=== PATIENT | male | born 1950 | race Caucasian/White ===

== ENCOUNTER 2019-02-09 08:32 | Outpatient (CLI) | payer BC ==
[2019-02-09 09:57] LABS: Bacteria/HPF None Seen HPF (None Seen); Hyaline Casts/LPF NONE SEEN LPF (0-3 Hyaline); RBC/HPF 0-3 HPF (0-3); Squamous Epithelial None Seen HPF (0-3); WBC/HPF 0-3 HPF (0-3)
== END 2019-02-09 08:33 | disposition home or self-care (01) ==
LOC: LABBT 08:32
PROVIDERS: ATTEND Orthopaedic Surgery
DX: Z01.818 Encounter for other preprocedural examination (principal); M17.11 Unilateral primary osteoarthritis, right knee
CPT/HCPCS: 81015; 87081; 93005; 93010

== ENCOUNTER 2019-02-09 08:45 | Inpatient (IN) | payer BC, MEDICARE ==
[2019-02-09 08:53] VITALS: BMI 32.4
[2019-02-21] MEDS ORDERED: Sodium Chloride 0.9% 100 ML ONE (10:31)
[2019-02-21] MEDS ORDERED: Tranexamic Acid 1,000 MG/10 ML VIAL ONE (10:31)
[2019-02-21] MEDS ORDERED: Vancomycin HCl 1.5 GM in Sodium Chloride 0.9% 250 ML 300 ML IVPB SCH (10:45)
[2019-02-21] MEDS ORDERED: Midazolam HCl 2 mg/2 ml Vial ONE ×2 (11:00→12:16)
[2019-02-21] MEDS ORDERED: Fentanyl 100 MCG/2 ML VIAL ONE ×4 (12:16→16:13)
[2019-02-21] MEDS ORDERED: Sodium Chloride 0.9% 10 ML ONE (12:17)
[2019-02-21] MEDS ORDERED: HYDROcodone/Acetaminophen 5/325 mg Tablet PO PRN (12:40)
[2019-02-21] MEDS ORDERED: Ondansetron PF 4 MG/2 ML Vial IVP PRN ×2 (12:40→13:14)
[2019-02-21] MEDS ORDERED: Zolpidem Tartrate 5 MG TAB PO PRN ×2 (12:40→13:14)
[2019-02-21] MEDS ORDERED: Ketorolac Tromethamine 30 MG/ML VIAL IVP PRN (12:40)
[2019-02-21] MEDS ORDERED: Promethazine HCl 25 MG/ML VIAL IM PRN ×2 (12:40→13:14)
[2019-02-21] MEDS ORDERED: Ropivacaine HCl/PF 250 ML in Premix Bag 1 BAG NERVE BLCK SCH (12:40)
[2019-02-21] MEDS ORDERED: traMADol HCl 50 MG TAB PO PRN (12:40)
[2019-02-21] MEDS ORDERED: Fentanyl 100 MCG/2 ML VIAL SLOW IVP PRN (12:42)
[2019-02-21] MEDS ORDERED: diphenhydrAMINE 25 MG CAP PO PRN (13:14)
[2019-02-21] MEDS ORDERED: Acetaminophen 325 MG TAB PO PRN (13:14)
[2019-02-21] MEDS ORDERED: Rizatriptan Benzoate 10 MG MLT TAB PO PRN (14:00)
[2019-02-21] MEDS ORDERED: Meperidine HCl/PF 25 MG/ML VIAL ONE (15:49)
--- NOTE | 2019-02-21 16:23 | RAD ---
Right knee 2 views HISTORY: Arthritis. Knee replacement. FINDINGS: Metallic prosthetic components are in place without perihardware lucency. Intracapsular and soft tissue gas are apparent. IMPRESSION: Right knee prosthesis is in good radiographic position.
[2019-02-21] MEDS: Sodium Chloride 0.9% 1,000 ML IV SCH (17:32)
--- NOTE | 2019-02-21 17:52 | OP ---
DATE OF PROCEDURE: 02/21/2019 This is Sean Yao PA-C dictating a report for Franklyn Knox MD. PREOPERATIVE DIAGNOSIS: End-stage severe degenerative tricompartmental osteoarthritis, right knee. POSTOPERATIVE DIAGNOSIS: End-stage severe degenerative tricompartmental osteoarthritis, right knee. OPERATIVE PROCEDURE: Cemented cruciate sparing computer-assisted navigated right total knee arthroplasty. SURGEON: Franklyn Knox MD INSPECTOR TOYS: Sean Yao PA-C ANESTHESIA: General via LMA augmented with indwelling adductor canal block with a single shot sciatic block. COMPONENTS USED: [employer] triathlon cemented cruciate sparing size 6 femoral component with a size 5 cemented primary tibial base plate, 9 mm polyethylene fixed bearing insert, and A38 patella button. TOURNIQUET TIME: 69 minutes at 300 mmHg. FINDINGS: End-stage severe degenerative tricompartmental disease, [id number] arthrosis, large periarticular osteophyte formation, hypertrophic synovium, and hypertrophic capsule. ESTIMATED BLOOD LOSS: Less than 100. DRAINS: None. SPECIMENS: None. COMPLICATIONS: None. COUNTS: Correct. INDICATION FOR SURGERY: Mario Alberto is a 68-year-old white male, who has had progressive right knee pain and problem with standing and walking for the last 5 to 7 years. He has also incidentally had a medial collateral ligament reconstruction and anterior cruciate ligament reconstruction/repair many years ago. He has elected to proceed with total knee arthroplasty as definitive treatment of his chronic pain. PROCEDURE IN DETAIL: After informed consent was obtained in the preoperative holding area, the patient was taken to the operative suite where general anesthesia was induced. Once adequate level of general anesthesia was obtained, the patient was positioned and a well-padded tourniquet was placed around the right proximal thigh. The right lower extremity was then prepped and draped in the usual sterile fashion. Prior to exsanguination, a time-out was called and all members of the surgical team agreed upon site, surgeon, and patient. The extremity was then exsanguinated and the tourniquet was raised. A midline longitudinal incision was then made directly over the patella extending 2 fingerbreadths above the superior pole of the patella and 2 fingerbreadths inferior to the inferior patellar pole of the patella. Deeper subcutaneous layers were dissected sharply and local bleeding was controlled with Bovie electrocautery. A quad tendon longitudinal split was then made sharply and a median parapatellar arthrotomy was carried out both sharp and with Bovie electrocautery, carried down to 1 fingerbreadth medial to the tibial tubercle. The knee was then placed into flexion and the patella was everted nicely, and a copious fat pad ectomy was performed, allowing for greater exposure of the tibia. The computer-assisted distal femoral fiducial was then placed and pinned firmly, and the distal femoral cutting guide was pinned firmly into place. The oscillating saw was then used to remove the appropriate amount of bone. The 4-in-1 cutting block was then placed on the distal femur and the oscillating saw was used to remove the appropriate amount of bone off the anterior, posterior, and chamfer cuts. After completion of bone cuts, the anterior cruciate ligament was resected sharply and the posterior cruciate ligament retractor was placed and the tibia was subluxed for better exposure. Partial meniscectomies were carried out, and the tibial computer-assisted fiducial was pinned, and the cutting guide was placed. Oscillating saw was then used to remove the bone, with Hohmann retractors used to take care and protect the collateral ligaments. After the tibial resection was performed, a laminar after school tutor was placed in between the freshened bone cuts. The knee placed at 90 degrees and further bilateral meniscectomies were carried out, and the curved osteotome and curettage were used to remove any excess bone spurs in the posterior compartment. The trial femoral component, tibial baseplate were placed with the appropriate polyethylene trial insert with an appropriate polyethylene spacer and patellar button. The knee was taken through full range of motion with flexion and extension from 0 to 90 degrees and patellar broach squarely in the trochlea without any squinting or subluxation noted. The knee was also stable to varus and valgus stressing at 0, 15, 45, and 90 degrees of flexion. The drawer was negative. All trial components were then removed and the keel punch was used to provide the appropriate defect in the tibia with a mallet. The freshened bone cuts were copiously irrigated with pulsatile lavage of about 1.5 L to remove all excess debris. The freshened bone cuts were then dried with suction and lap sponge. The knee was placed in flexion and retractors were placed to provide access to all bone cuts. Tobramycin-impregnated methyl methacrylate cement was then placed on the freshened bone cuts and implants which were malleted firmly into place. Curettage and [place] elevators were used to remove any excess bone cement. The knee was placed into full extension and the patellar button was placed under compression, and the cement was allowed to cure. Once completed, the components were again taken through full range of motion and copious irrigation of the knee was carried out with another liter of normal saline. All components were inspected fully with full range of motion and varus and valgus stressing. There was no laxity noted and full extension was observed clinically. Primary closure was accomplished with #2 interrupted Vicryl stitch of the arthrotomy defect. This was oversewn with a #2 running Quill barbed stitch. The subcutaneous layer was then closed with a running 0 barbed Monocryl stitch and skin closure accomplished with a running subcuticular 3-0 Monocryl barbed Quill stitch and augmented with cement on the skin. Tourniquet was lowered. Good spontaneous return of distal pulses was noted clinically and a sterile dressing was applied to the incision. The procedure was terminated without any complications. The patient was awakened in the operative suite and taken to the recovery room in stable condition. Job ID: [id number]
[2019-02-21] MEDS ORDERED: Prevnar 13-Val Conj/PF 0.5 ML SYRINGE IM ONE (18:00)
[2019-02-21] MEDS: traMADol HCl 50 MG TAB PO PRN (18:03)
[2019-02-21] MEDS: CEFAZOLIN 2 GM in Premix Bag 1 BAG IVPB SCH (18:04)
[2019-02-21] MEDS: Ferrous Gluconate 324 MG TAB PO SCH (19:39)
[2019-02-21] MEDS: Senokot S 8.6-50 MG TAB PO SCH (19:39)
[2019-02-21] MEDS: Fenofibrate 48 MG TAB PO SCH (20:19)
[2019-02-21] MEDS: Aspirin 81 mg Enteric Coated Tablet PO SCH (20:19)
[2019-02-21] MEDS: HYDROcodone/Acetaminophen 5/325 mg Tablet PO PRN (21:52)
[2019-02-22] MEDS: Sodium Chloride 0.9% 1,000 ML IV SCH ×3 (01:44→19:38)
[2019-02-22] MEDS: CEFAZOLIN 2 GM in Premix Bag 1 BAG IVPB SCH ×3 (01:46→18:00)
[2019-02-22 04:01] LABS: Hemoglobin 10.8 g/dL (14.0-18.0); Mean Corpuscular HGB CONC 33.9 g/dL (32.0-36.0); Mean Corpuscular Hemoglobin 31.1 pg (27.0-31.0); Mean Corpuscular Volume 91.6 fL (78.0-98.0); Mean Platelet Volume 5.8 fL (7.4-10.4); Platelet Count 237 thou/uL (130-400); RBC Distribution Width 12.2 % (11.5-14.5); Red Blood Cell (RBC) Count 3.49 mill/uL (4.70-6.10); White Blood Cell (WBC) Count 10.4 thou/uL (4.8-10.8)
[2019-02-22] MEDS: HYDROcodone/Acetaminophen 5/325 mg Tablet PO PRN ×4 (06:02→18:15)
[2019-02-22] MEDS: metFORMIN XR 500 MG TAB PO SCH (08:09)
[2019-02-22] MEDS: Multivitamin W/ Minerals 1 TAB PO SCH (08:10)
[2019-02-22] MEDS: Aspirin 81 mg Enteric Coated Tablet PO SCH ×2 (08:10→19:59)
[2019-02-22] MEDS: Senokot S 8.6-50 MG TAB PO SCH ×2 (08:10→20:00)
[2019-02-22] MEDS: Losartan/Hydrochlorothiazide 100 mg/25 mg Tablet PO SCH (08:10)
[2019-02-22] MEDS: Ubidecarenone 50 MG CAP PO SCH (08:10)
[2019-02-22] MEDS: Ferrous Gluconate 324 MG TAB PO SCH ×2 (08:10→19:59)
[2019-02-22] MEDS: Fluticasone Propionate Nasal Spray 16 gm Bottle NASAL SCH (08:15)
[2019-02-22] MEDS ORDERED: Aspirin 81 mg Enteric Coated Tablet PO SCH (09:00)
[2019-02-22] MEDS ORDERED: Multivit, Chewable SF 1 TAB PO SCH (09:00)
--- NOTE | 2019-02-22 09:44 | PRG ---
DATE OF SERVICE: 02/22/2019 SUBJECTIVE: Mario Alberto is a 68-year-old white male, who is postop day 1 from a right total knee arthroplasty. His pain is very well controlled, and I believe he did not ambulate yesterday evening, but did have Physical Therapy evaluation. Currently, he has no complaints. OBJECTIVE: VITAL SIGNS: Temperature 98.4, pulse 72, respiratory rate 20 and nonlabored, blood pressure is 129/75. GENERAL: He is alert and oriented to person, place, time, and situation. Grossly nonfocal. Appropriate with examiner. EXTREMITIES: His incisions are clean. There is no strikethrough. No erythema. He has dorsiflexion inversion and eversion in the involved extremity. LABORATORY DATA: Hemoglobin and hematocrit 10.8 and 32.0. IMPRESSION: A 68-year-old white male, postoperative day 1, right total knee arthroplasty. PLAN: Continue current care. Probable discharge to home tomorrow. Job ID: [id number]
--- NOTE | 2019-02-22 10:18 | PRG ---
DATE OF SERVICE: 02/22/2019 PRIMARY CARE PHYSICIAN: Dr. Jacek Haas. SUBJECTIVE: The patient was seen and examined for medical management. Pain is controlled at this time. He denies any chest pain, shortness of breath, palpitations, fever, or chills. No edema or shortness of breath reported. REVIEW OF SYSTEMS: All other review of systems was reviewed and was found negative. PHYSICAL EXAMINATION: VITAL SIGNS: Temperature 98.4, pulse rate of 72, respirations 20, blood pressure 129/75, and O2 saturations 97% on room air. GENERAL: A 68-year-old male, in no apparent distress. LUNGS: Clear to auscultation bilaterally. No wheezing, rales, or rhonchi. HEART: S1 and S2 present. Regular rate and rhythm. No rubs or gallops appreciated. ABDOMEN: Soft, nontender. Bowel sounds present. EXTREMITIES: No edema or calf tenderness. NEUROLOGIC: Grossly nonfocal. LABORATORY FINDINGS: WBC 7.2, hemoglobin 13.8, hematocrit 41.1, platelets 294. PT and INR in normal range. BUN 31, creatinine 1.22, sodium 137, potassium 4.3. Knee x-ray showed right knee prosthesis is in good place. EKG by my review showed sinus rhythm. IMPRESSION: 1. Status post right knee replacement. 2. Hypertension. 3. Dyslipidemia. 4. Diabetes mellitus, type 2. 5. History of migraines. 6. Obesity with a BMI of 32.5. 7. Chronic kidney disease, stage 3. PLAN: Losartan and hydrochlorothiazide 100/25 will be continued for high blood pressure. We will also continued TriCor for dyslipidemia. For diabetes, metformin will be continued. There is no need for insulin sliding scale. He is on diabetic diet with Glucerna. We will continue IV fluids until he is tolerating p.o. DVT prophylaxis with aspirin per protocol. He was advised to continue incentive spirometer as well as ambulate as tolerated. DVT prophylaxis with SCDs. Code status, full code. Surrogate decision maker, the patient makes his own decision with the help of his family. Thank you for this consultation. We will follow. Job ID: [id number]
[2019-02-22] MEDS: traMADol HCl 50 MG TAB PO PRN (12:56)
[2019-02-22] MEDS: Fenofibrate 48 MG TAB PO SCH (19:59)
[2019-02-23] MEDS: HYDROcodone/Acetaminophen 5/325 mg Tablet PO PRN ×4 (00:22→14:11)
[2019-02-23] MEDS: Sodium Chloride 0.9% 1,000 ML IV SCH (05:42)
[2019-02-23 05:51] LABS: Hemoglobin 9.2 g/dL (14.0-18.0); Mean Corpuscular HGB CONC 32.9 g/dL (32.0-36.0); Mean Corpuscular Hemoglobin 30.3 pg (27.0-31.0); Mean Corpuscular Volume 92.1 fL (78.0-98.0); Mean Platelet Volume 6.4 fL (7.4-10.4); Platelet Count 202 thou/uL (130-400); RBC Distribution Width 12.5 % (11.5-14.5); Red Blood Cell (RBC) Count 3.04 mill/uL (4.70-6.10); White Blood Cell (WBC) Count 9.1 thou/uL (4.8-10.8)
[2019-02-23] MEDS: Fluticasone Propionate Nasal Spray 16 gm Bottle NASAL SCH (09:42)
[2019-02-23] MEDS: Ferrous Gluconate 324 MG TAB PO SCH (09:44)
[2019-02-23] MEDS: Aspirin 81 mg Enteric Coated Tablet PO SCH (09:44)
[2019-02-23] MEDS: metFORMIN XR 500 MG TAB PO SCH (09:44)
[2019-02-23] MEDS: Senokot S 8.6-50 MG TAB PO SCH (09:45)
[2019-02-23] MEDS: Multivitamin W/ Minerals 1 TAB PO SCH (09:45)
[2019-02-23] MEDS: Ubidecarenone 50 MG CAP PO SCH (09:45)
[2019-02-23] MEDS: Losartan/Hydrochlorothiazide 100 mg/25 mg Tablet PO SCH (12:27)
[2019-02-23 15:34] VITALS: BP 128/60; TEMP 97.4
== END 2019-02-23 15:40 | disposition home or self-care (01) | DRG 470 ==
LOC: SURG A 02-21 10:13 → SJJU 02-21 16:41
PROVIDERS: ADMIT Orthopaedic Surgery; ATTEND Orthopaedic Surgery
PROC: 0SRC0J9 Replacement of Right Knee Joint with Synthetic Substitute, Cemented, Open Approach (ICD-10-PCS; principal; 2019-02-21)
DX: M17.11 Unilateral primary osteoarthritis, right knee (principal); I12.9 Hypertensive chronic kidney disease with stage 1 through stage 4 chronic kidney disease, or unspecified chronic kidney disease; N18.3 Chronic kidney disease, stage 3 (moderate); E11.22 Type 2 diabetes mellitus with diabetic chronic kidney disease; G43.909 Migraine, unspecified, not intractable, without status migrainosus; E78.5 Hyperlipidemia, unspecified; E66.9 Obesity, unspecified; Z68.32 Body mass index [BMI] 32.0-32.9, adult; Z79.1 Long term (current) use of non-steroidal anti-inflammatories (NSAID); Z79.82 Long term (current) use of aspirin; Z79.84 Long term (current) use of oral hypoglycemic drugs; Z79.51 Long term (current) use of inhaled steroids
CPT/HCPCS: 36415; 85027; 86850; 86900; 86901; C1713; C1776; J0690; J2175; J2250; J2405; J2550; J2795; J3010; J3370; J3490; J7050

== ENCOUNTER 2019-02-17 09:02 | Outpatient (CLI) | payer BC ==
[2019-02-17 14:09] LABS: #Basophils 0.1 thou/uL (0.0-0.2); #Eosinphils 0.2 thou/uL (0.0-0.7); #Lymphocytes 3.3 thou/uL (1.20-3.40); #Monocytes 0.7 thou/uL (0.11-0.59); %Basophils 1.2 % (0.0-1.0); %Eosinophils 2.5 % (0.0-10.0); %Monocytes 9.4 % (0.0-10.0); Hemoglobin 13.8 g/dL (14.0-18.0); Mean Corpuscular HGB CONC 33.6 g/dL (32.0-36.0); Mean Corpuscular Hemoglobin 30.6 pg (27.0-31.0); Mean Corpuscular Volume 90.9 fL (78.0-98.0); Mean Platelet Volume 6.1 fL (7.4-10.4); Platelet Count 294 thou/uL (130-400); RBC Distribution Width 12.3 % (11.5-14.5); Red Blood Cell (RBC) Count 4.52 mill/uL (4.70-6.10); White Blood Cell (WBC) Count 7.2 thou/uL (4.8-10.8)
[2019-02-17 14:12] LABS: Prothrombin Time 13.2 SEC (12.0-14.7)
[2019-02-17 14:26] LABS: Anion Gap 12 mmol/L (10-20); BUN (Urea Nitrogen) 31 mg/dL (8.4-25.7); Calc. Creatinine Clearance 0 mL/min (70-130); Calcium 10.5 mg/dL (7.8-10.44); Carbon Dioxide 26 mmol/L (23-31); Chloride 103 mmol/L (98-107); Estimated GFR-MDRD 59; Glucose 77 mg/dL (80-115); Potassium 4.3 mmol/L (3.5-5.1); Sodium 137 mmol/L (136-145)
== END 2019-02-17 09:03 | disposition home or self-care (01) ==
LOC: LABBT 09:02
PROVIDERS: ATTEND Orthopaedic Surgery
DX: Z01.812 Encounter for preprocedural laboratory examination (principal); M17.11 Unilateral primary osteoarthritis, right knee
CPT/HCPCS: 80048; 85025; 85610

== ENCOUNTER 2020-01-18 05:49 | Outpatient (CLI) | payer BC, MEDICARE, OTHER ==
[2020-01-18 13:33] LABS: #Eosinphils 0.2 thou/uL (0.0-0.7); #Lymphocytes 2.8 thou/uL (1.20-3.40); #Monocytes 0.7 thou/uL (0.11-0.59); #Neutrophils 3.8 thou/uL (1.40-6.50); %Basophils 0.5 % (0.0-1.0); %Eosinophils 3.1 % (0.0-10.0); %Lymphocytes 37.6 % (21.0-51.0); %Monocytes 8.9 % (0.0-10.0); Hemoglobin 13.4 g/dL (14.0-18.0); Mean Corpuscular Hemoglobin 29.4 pg (27.0-31.0); Mean Corpuscular Volume 89.2 fL (78.0-98.0); Mean Platelet Volume 6.7 fL (7.4-10.4); Platelet Count 289 thou/uL (130-400); RBC Distribution Width 13.4 % (11.5-14.5); Red Blood Cell (RBC) Count 4.56 mill/uL (4.70-6.10); White Blood Cell (WBC) Count 7.6 thou/uL (4.8-10.8)
[2020-01-18 13:50] LABS: Anion Gap 12 mmol/L (10-20); BUN (Urea Nitrogen) 21 mg/dL (8.4-25.7); Calc. Creatinine Clearance 0 mL/min (70-130); Calcium 10.3 mg/dL (7.8-10.44); Carbon Dioxide 26 mmol/L (23-31); Chloride 101 mmol/L (98-107); Estimated GFR-MDRD 72; Glucose 97 mg/dL (80-115); Potassium 4.1 mmol/L (3.5-5.1); Sodium 135 mmol/L (136-145)
[2020-01-18 13:59] LABS: INR-International Normal Ratio 0.9; Prothrombin Time 12.3 sec (12.0-14.7)
[2020-01-18 17:18] LABS: SARS-CoV-2 MS2 Positive; SARS-CoV-2 N Gene Negative; SARS-CoV-2 S Gene Negative; SARS-CoV-2 orf1ab Negative
--- NOTE | 2020-01-21 16:14 | EKG ---
Test Reason : Blood Pressure : / mmHG Vent. Rate : 080 BPM Atrial Rate : 080 BPM P-R Int : 136 ms QRS Dur : 088 ms QT Int : 370 ms P-R-T Axes : 001 017 004 degrees QTc Int : 426 ms Normal sinus rhythm Inferior infarct , age undetermined Abnormal ECG When compared with ECG of 09-FEB-2019 09:30, Inferior infarct is now Present T wave inversion now evident in Inferior leads Confirmed by PATRIA FORDE (2) on 01/21/2020 4:13:46 PM Referred By: ADRIEL Confirmed By:PATRIA FORDE
== END 2020-01-18 05:50 | disposition home or self-care (01) ==
LOC: LABBT 05:49
PROVIDERS: ATTEND Orthopaedic Surgery
DX: Z01.818 Encounter for other preprocedural examination (principal); Z11.59 Encounter for screening for other viral diseases; M17.12 Unilateral primary osteoarthritis, left knee
CPT/HCPCS: 80048; 85025; 85610; 87081; 87635; 93005; 93010; U0003

== ENCOUNTER 2020-01-18 11:00 | Inpatient (IN) | payer BC, MEDICARE ==
[2020-01-18 10:54] VITALS: BMI 33.0
[2020-01-23] MEDS ORDERED: Tranexamic Acid 1,000 MG/10 ML VIAL ONE (07:32)
[2020-01-23] MEDS ORDERED: Sodium Chloride 0.9% 100 ML ONE (07:34)
[2020-01-23] MEDS ORDERED: Scopolamine 1.5 mg/72 hour Patch ONE (07:35)
[2020-01-23] MEDS ORDERED: Midazolam HCl 2 mg/2 ml Vial ONE ×2 (07:35→07:58)
[2020-01-23] MEDS ORDERED: Vancomycin 1.5 GRAM/300 ML BAG 1.5 GM in Premix Bag 1 BAG IVPB SCH (07:45)
[2020-01-23] MEDS ORDERED: Fentanyl 100 MCG/2 ML VIAL ONE ×4 (07:58→12:26)
[2020-01-23] MEDS ORDERED: Acetaminophen 325 MG TAB PO PRN ×2 (08:33→09:30)
[2020-01-23] MEDS ORDERED: HYDROcodone/Acetaminophen 10/325 mg Tablet PO PRN (08:33)
[2020-01-23] MEDS ORDERED: Ropivacaine HCl/PF 250 ML in Premix Bag 1 BAG NERVE BLCK SCH (08:33)
[2020-01-23] MEDS ORDERED: traMADol HCl 50 MG TAB PO PRN ×2 (08:33)
[2020-01-23] MEDS ORDERED: Ondansetron PF 4 MG/2 ML Vial IVP PRN ×2 (08:33→09:30)
[2020-01-23] MEDS ORDERED: Zolpidem Tartrate 5 MG TAB PO PRN ×2 (08:33→09:30)
[2020-01-23] MEDS ORDERED: Promethazine HCl 25 MG/ML VIAL IM PRN ×2 (08:33→09:30)
[2020-01-23] MEDS ORDERED: Fentanyl 100 MCG/2 ML VIAL IV PRN (08:34)
[2020-01-23] MEDS ORDERED: Hydrochlorothiazide 25 MG TAB PO PRN (09:29)
[2020-01-23] MEDS ORDERED: Fluticasone Propionate Nasal Spray 16 gm Bottle NASAL PRN (09:29)
[2020-01-23] MEDS ORDERED: Rizatriptan Benzoate 10 MG MLT TAB PO PRN (09:29)
[2020-01-23] MEDS ORDERED: diphenhydrAMINE 25 MG CAP PO PRN (09:30)
[2020-01-23] MEDS ORDERED: Lidocaine 1% PF 5 ML VIAL ONE (11:39)
[2020-01-23] MEDS ORDERED: Ropivacaine 0.2% HCl/PF (40 MG/20 ML VIAL) ONE (11:39)
[2020-01-23] MEDS ORDERED: Bupivacaine HCl 0.5%/Epinephrine 1:200,000/PF 30 ml Vial ONE (11:39)
[2020-01-23] MEDS ORDERED: Dexamethasone 20 MG/5 ML VIAL ONE (11:39)
[2020-01-23] MEDS ORDERED: Ondansetron PF 4 MG/2 ML Vial ONE (11:39)
[2020-01-23] MEDS ORDERED: PROPOFOL 200 MG/20 ML VIAL ONE (11:39)
[2020-01-23] MEDS ORDERED: Ketorolac Tromethamine 30 MG/ML VIAL ONE (11:39)
[2020-01-23] MEDS ORDERED: Ondansetron HCl/PF 4 MG/2 ML Vial IVP PRN (11:51)
[2020-01-23] MEDS ORDERED: HYDROmorphone 0.5 MG/0.5 ML SYRINGE ONE (12:40)
--- NOTE | 2020-01-23 14:28 | OP ---
DATE OF PROCEDURE: 01/23/2020 PREOPERATIVE DIAGNOSIS: End-stage tricompartmental osteoarthritis, left knee. POSTOPERATIVE DIAGNOSIS: End-stage tricompartmental osteoarthritis, left knee. PROCEDURE PERFORMED: Cemented cruciate-sparing computer-assisted navigated left total knee arthroplasty. INSTRUMENT ASSEMBLY SUPERVISOR: Sean Yao PA-C. ANESTHESIA: General via the LMA, augmented with indwelling adductor canal block and a single-shot sciatic block. COMPONENTS USED: [employer] Triathlon cemented cruciate sparing, size 6 femoral component with a size 5 cemented primary tibial base plate, 11 mm polyethylene fixed bearing insert, and A32 patella button. TOURNIQUET TIME: 59 minutes at 300 mmHg. ESTIMATED BLOOD LOSS: Less than 100 mL. FINDINGS: End-stage severe degenerative tricompartmental disease, [id number] arthrosis, periarticular osteophyte formation, large serous effusion, hypertrophic synovium, and changes consistent with chronic DJD. DRAINS: None. SPECIMENS: None. COMPLICATIONS: None. COUNTS: Correct. INDICATION FOR SURGERY: Mario Alberto is a 69-year-old white male who has had progressive left knee pain and problem with standing and walking for the last 5 to 7 years. He has failed conservative management and elected to proceed with total knee arthroplasty as definitive treatment of his pain. PROCEDURE IN DETAIL: After informed consent was obtained in the preoperative holding area, the patient was taken to the operative suite where general anesthesia was induced. Once adequate level of general anesthesia was obtained, the patient was positioned and a well-padded tourniquet was placed around the left proximal thigh. The left lower extremity was then prepped and draped in the usual sterile fashion. Prior to exsanguination, a time-out was called and all members of the surgical team agreed upon site, surgeon, and patient. The extremity was then exsanguinated and the tourniquet was raised. A midline longitudinal incision was then made directly over the patella extending 2 fingerbreadths above the superior pole of the patella and 2 fingerbreadths inferior to the inferior patellar pole of the patella. Deeper subcutaneous layers were dissected sharply and local bleeding was controlled with Bovie electrocautery. A quad tendon longitudinal split was then made sharply and a median parapatellar arthrotomy was carried out both sharp and with Bovie electrocautery, carried down to 1 fingerbreadth medial to the tibial tubercle. The knee was then placed into flexion and the patella was everted nicely, and a copious fat pad ectomy was performed allowing for greater exposure of the tibia. The computer-assisted distal femoral fiducial was then placed and pinned firmly, and the distal femoral cutting guide was pinned firmly into place. The oscillating saw was then used to remove the appropriate amount of bone. The 4-in-1 cutting block was then placed on the distal femur and the oscillating saw was used to remove the appropriate amount of bone off the anterior, posterior, and chamfer cuts. After completion of bone cuts, the anterior cruciate ligament was resected sharply and the posterior cruciate ligament retractor was placed and the tibia was subluxed for better exposure. Partial meniscectomies were carried out, and the tibial computer-assisted fiducial was pinned, and the cutting guide was placed. Oscillating saw was then used to remove the bone, with Hohmann retractors used to take care and protect the collateral ligaments. After the tibial resection was performed, a laminar vice squad police officer was placed in between the freshened bone cuts. The knee placed at 90 degrees and further bilateral meniscectomies were carried out, and the curved osteotome and curettage were used to remove any excess bone spurs in the posterior compartment. The trial femoral component, tibial baseplate were placed with the appropriate polyethylene trial insert with an appropriate polyethylene spacer and patellar button. The knee was taken through full range of motion with flexion and extension from 0 to 90 degrees and patellar broach squarely in the trochlea without any squinting or subluxation noted. The knee was also stable to varus and valgus stressing at 0, 15, 45, and 90 degrees of flexion. The drawer was negative. All trial components were then removed and the keel punch was used to provide the appropriate defect in the tibia with a mallet. The freshened bone cuts were copiously irrigated with pulsatile lavage of about 1.5 L to remove all excess debris. The freshened bone cuts were then dried with suction and lap sponge. The knee was placed in flexion and retractors were placed to provide access to all bone cuts. Tobramycin-impregnated methyl methacrylate cement was then placed on the freshened bone cuts and implants which were malleted firmly into place. Curettage and [place] elevators were used to remove any excess bone cement. The knee was placed into full extension and the patellar button was placed under compression, and the cement was allowed to cure. Once completed, the components were again taken through full range of motion and copious irrigation of the knee was carried out with another liter of normal saline. All components were inspected fully with full range of motion and varus and valgus stressing. There was no laxity noted and full extension was observed clinically. Primary closure was accomplished with #2 interrupted Vicryl stitch of the arthrotomy defect. This was oversewn with a #2 running Quill barbed stitch. The gravitational platelet system was then injected into the arthrotomy prior to closure. The subcutaneous layer was then closed with a running 0 barbed Monocryl stitch and skin closure accomplished with a running subcuticular 3-0 Monocryl barbed Quill stitch and augmented with cement on the skin. Tourniquet was lowered. Good spontaneous return of distal pulses was noted clinically and a sterile dressing was applied to the incision. The procedure was terminated without any complications. The patient was awakened in the operative suite and the was removed, and the patient was taken to the recovery room in stable condition. Job ID: [id number]
--- NOTE | 2020-01-23 14:39 | RAD ---
LEFT KNEE 2 VIEWS: HISTORY: Total knee arthroplasty. FINDINGS/IMPRESSION: There are postop changes of recent total knee arthroplasty in good position and alignment. Soft tiss ue air is present. POS: KESHAA
[2020-01-23] MEDS: Sodium Chloride 0.9% 1,000 ML IV SCH ×2 (15:05→21:00)
[2020-01-23] MEDS: Ketorolac Tromethamine 30 MG/ML VIAL IVP SCH ×3 (15:06→22:58)
[2020-01-23] MEDS: HYDROcodone/Acetaminophen 10/325 mg Tablet PO PRN (15:09)
[2020-01-23] MEDS ORDERED: CEFAZOLIN 2 GM in Premix Bag 1 BAG IVPB SCH (16:00)
[2020-01-23] MEDS: CEFAZOLIN 2 GM in Premix Bag 1 BAG IVPB SCH (17:19)
[2020-01-23] MEDS: Senokot S 8.6-50 MG TAB PO SCH (19:43)
[2020-01-23] MEDS: Ferrous Gluconate 324 MG TAB PO SCH (19:43)
[2020-01-23] MEDS: Aspirin 81 mg Enteric Coated Tablet PO SCH (19:43)
[2020-01-23] MEDS: Fenofibrate 48 MG TAB PO SCH (19:44)
[2020-01-24] MEDS: CEFAZOLIN 2 GM in Premix Bag 1 BAG IVPB SCH (01:37)
[2020-01-24] MEDS: HYDROcodone/Acetaminophen 10/325 mg Tablet PO PRN ×4 (03:54→18:36)
[2020-01-24 05:42] LABS: Hemoglobin 10.5 g/dL (14.0-18.0); Mean Corpuscular HGB CONC 32.6 g/dL (32.0-36.0); Mean Corpuscular Hemoglobin 29.3 pg (27.0-31.0); Mean Corpuscular Volume 89.8 fL (78.0-98.0); Mean Platelet Volume 6.3 fL (7.4-10.4); Platelet Count 226 thou/uL (130-400); RBC Distribution Width 13.4 % (11.5-14.5); Red Blood Cell (RBC) Count 3.59 mill/uL (4.70-6.10); White Blood Cell (WBC) Count 9.8 thou/uL (4.8-10.8)
[2020-01-24] MEDS: Ketorolac Tromethamine 30 MG/ML VIAL IVP SCH ×3 (05:56→18:35)
[2020-01-24] MEDS: Sodium Chloride 0.9% 1,000 ML IV SCH ×2 (05:57→15:19)
[2020-01-24] MEDS: metFORMIN 500 MG TAB PO SCH ×2 (08:10→20:58)
[2020-01-24] MEDS: Senokot S 8.6-50 MG TAB PO SCH ×2 (08:10→20:58)
[2020-01-24] MEDS: Ferrous Gluconate 324 MG TAB PO SCH ×2 (08:10→20:58)
[2020-01-24] MEDS: Ubidecarenone 50 MG CAP PO SCH (08:10)
[2020-01-24] MEDS: Multivitamin W/ Minerals 1 TAB PO SCH (08:10)
[2020-01-24] MEDS: Aspirin 81 mg Enteric Coated Tablet PO SCH ×2 (08:10→20:58)
[2020-01-24] MEDS: Furosemide 20 MG TAB PO SCH (08:29)
[2020-01-24] MEDS: Multivit, Therapeutic 1 TAB PO SCH (08:29)
[2020-01-24] MEDS ORDERED: Aspirin 81 mg Enteric Coated Tablet PO SCH (09:00)
[2020-01-24] MEDS ORDERED: Prevnar 13-Val Conj/PF 0.5 ML SYRINGE IM ONE (09:00)
--- NOTE | 2020-01-24 09:07 | PDOC.HOSPP ---
- Subjective Encounter Date: 01/23/20 Encounter Time: 15:00 Subjective: pt up in bed no complains - Objective Vital Signs & Weight: Vital Signs (12 hours) Temp Pulse Resp BP Pulse Ox 01/24/20 03:58 98.1 F 52 L 18 120/75 96 01/23/20 23:00 98.2 F 61 18 126/71 95 Weight Weight 250 lb I&O: 01/23/20 01/24/20 01/25/20 06:59 06:59 06:59 Intake Total 1120 Output Total 600 Balance 520 Result Diagrams: 01/24/20 05:23 Hospitalist ROS - Review of Systems Respiratory: denies: cough, dry, shortness of breath, hemoptysis, SOB with excertion, pleuritic pain, sputum, wheezing, other Cardiovascular: denies: chest pain, palpitations, orthopnea, paroxysmal noc. dyspnea, edema, light headedness, other Gastrointestinal: denies: nausea, vomiting, abdominal pain, diarrhea, constipation, melena, hematochezia, other - Medication Medications: Active Medications Generic Name Dose Route Start Last Admin Trade Name Freq PRN Reason Stop Dose Admin Hydrocodone Bitart/Acetaminophen 1 tab 01/23/20 08:33 01/24/20 08:12 [place] 10/325 PO 1 tab Q4H PRN Administration Pain (1-3) Aspirin 81 mg 01/23/20 21:00 01/24/20 08:10 Ecotrin PO 81 mg BID NURY Administration Coenzyme Q10 100 mg 01/24/20 09:00 01/24/20 08:10 Coenzyme Q10 PO 100 mg DAILY NURY Administration Fenofibrate 48 mg 01/23/20 21:00 01/23/20 19:44 Tricor PO Not Given HS NURY Ferrous Gluconate 324 mg 01/23/20 21:00 01/24/20 08:10 Fergon PO 324 mg BID NURY Administration Furosemide 20 mg 01/24/20 09:00 01/24/20 08:29 Lasix PO Not Given DAILY NURY Sodium Chloride 1,000 mls @ 100 mls/hr 01/23/20 09:30 01/24/20 05:57 Normal Saline 0.9% IV Not Given .Q10H NURY Iron/Minerals/Multivitamins 1 tab 01/24/20 09:00 01/24/20 08:10 Theragran M PO 1 tab DAILY NURY Administration Ketorolac Tromethamine 15 mg 01/23/20 12:00 01/24/20 05:56 Toradol IVP 01/25/20 06:01 15 mg Q6HR NURY Administration Metformin HCl 500 mg 01/24/20 09:00 01/24/20 08:10 Glucophage PO 500 mg BID NURY Administration Multivitamins 1 tab 01/24/20 09:00 01/24/20 08:29 Theragran PO Not Given DAILY NURY Senna/Docusate Sodium 2 tab 01/23/20 21:00 01/24/20 08:10 Senokot S PO 2 tab BID NURY Administration Sodium Chloride 10 ml 01/23/20 09:00 01/23/20 19:44 Flush - Normal Saline IVF Not Given Q12HR NURY - Exam Neck: negative: supple, symmetric, no JVD, no thyromegaly, no lymphadenopathy, no carotid bruit, JVD Heart: negative: RRR, no murmur, no gallops, no rubs, normal peripheral pulses, irregular, diminshed peripheral pulses, murmur present, II/IV, III/IV Respiratory: negative: CTAB, no wheezes, no rales, no ronchi, normal chest expansion, no tachypnea, normal percussion, rales, rhonchi, tachypneic, wheezes Gastrointestinal: negative: soft, non-tender, non-distended, normal bowel sounds , no palpable masses, no hepatomegaly, no splenomegaly, no bruit, no guarding, no rigidity, tender to palpation, distended, diminished bowl sounds, voluntary guarding Extremities - other findings: left knee wrapped Hosp A/P (1) HTN (hypertension) Code(s): I10 - ESSENTIAL (PRIMARY) HYPERTENSION Status: Acute (2) Diabetes Code(s): E11.9 - TYPE 2 DIABETES MELLITUS WITHOUT COMPLICATIONS Status: Acute (3) Status post left knee replacement Code(s): Z96.652 - PRESENCE OF LEFT ARTIFICIAL KNEE JOINT Status: Acute - Plan pt's home meds continued. His vitals area stable. pt on dvt ppx per ortho. Mild anemia noted most likely post op.
[2020-01-24] MEDS: Losartan/Hydrochlorothiazide 100 mg/25 mg Tablet PO SCH (11:03)
--- NOTE | 2020-01-24 12:59 | PRG ---
DATE OF SERVICE: 01/24/2020 SUBJECTIVE: Mario Alberto is a 69-year-old male who is postop day 1 from a left total knee arthroplasty. He is doing very well. He is comfortable. This is his second arthroplasty, and he is familiar with the procedure and process. He has no complaints. OBJECTIVE: VITAL SIGNS: Temperature 97.8, pulse 68, respiratory rate 16, and blood pressure 130/77. GENERAL: He is alert and oriented to person, place, time, and situation, responsive, appropriate with examiner. Incision is clean. No strike through. He has near full extension, and he is neurovascularly intact in the left lower extremity. LABORATORY STUDIES: Hemoglobin and hematocrit are 10.5 and 32.2. IMPRESSION: A 69-year-old male, postop day 1, left total knee arthroplasty, doing well. PLAN: Continue current care. Probable discharge home tomorrow. Job ID: [id number]
[2020-01-24] MEDS: Fenofibrate 48 MG TAB PO SCH (20:58)
[2020-01-25] MEDS: Ketorolac Tromethamine 30 MG/ML VIAL IVP SCH ×2 (00:02→05:56)
[2020-01-25] MEDS: Sodium Chloride 0.9% 1,000 ML IV SCH ×2 (01:46→13:13)
[2020-01-25] MEDS: HYDROcodone/Acetaminophen 10/325 mg Tablet PO PRN ×2 (05:55→09:30)
[2020-01-25] MEDS: Ubidecarenone 50 MG CAP PO SCH (09:14)
[2020-01-25] MEDS: Losartan/Hydrochlorothiazide 100 mg/25 mg Tablet PO SCH (09:14)
[2020-01-25] MEDS: Aspirin 81 mg Enteric Coated Tablet PO SCH (09:14)
[2020-01-25] MEDS: Furosemide 20 MG TAB PO SCH (09:14)
[2020-01-25] MEDS: Multivit, Therapeutic 1 TAB PO SCH (09:14)
[2020-01-25] MEDS: Ferrous Gluconate 324 MG TAB PO SCH (09:15)
[2020-01-25] MEDS: Senokot S 8.6-50 MG TAB PO SCH (09:15)
[2020-01-25] MEDS: metFORMIN 500 MG TAB PO SCH (09:15)
[2020-01-25] MEDS: Multivitamin W/ Minerals 1 TAB PO SCH (09:16)
[2020-01-25 11:33] VITALS: BP 172/88; TEMP 98.2
== END 2020-01-25 14:36 | disposition home or self-care (01) | DRG 470 ==
LOC: SURG A 01-23 06:46
PROVIDERS: ADMIT Orthopaedic Surgery; ATTEND Orthopaedic Surgery
PROC: 0SRD0J9 Replacement of Left Knee Joint with Synthetic Substitute, Cemented, Open Approach (ICD-10-PCS; principal; 2020-01-23)
PROC: 8E0YXBZ Computer Assisted Procedure of Lower Extremity (ICD-10-PCS; 2020-01-23)
DX: M17.12 Unilateral primary osteoarthritis, left knee (principal); M25.762 Osteophyte, left knee; I10 Essential (primary) hypertension; J44.9 Chronic obstructive pulmonary disease, unspecified; E11.9 Type 2 diabetes mellitus without complications; E78.5 Hyperlipidemia, unspecified; J30.2 Other seasonal allergic rhinitis; E66.9 Obesity, unspecified; Z68.33 Body mass index [BMI] 33.0-33.9, adult; Z79.84 Long term (current) use of oral hypoglycemic drugs; Z79.82 Long term (current) use of aspirin; Z79.899 Other long term (current) drug therapy
CPT/HCPCS: 36415; 85027; C1713; C1776; J0670; J0690; J1100; J1170; J1885; J2001; J2250; J2405; J2704; J2795; J3010; J3490

== ENCOUNTER 2020-07-24 07:28 | Outpatient (CLI) | payer BC ==
--- NOTE | 2020-07-24 10:05 | MRI ---
MRI LUMBAR SPINE NONCONTRAST: DATE: 07/24/2020. HISTORY: A 70-year-old male with lumbar radiculopathy, M54.16. COMPARISON: None. FINDINGS: There is a transitional level at the lumbosacral junction. Without prior imaging studies of the thor acic spine for counting purposes, the following, somewhat arbitrary designation of levels will be use d for the purposes of this report. The 1st asp-irf-osijrtm vertebra will be designated as L1. The transitional level at the lumbosacral junction will be designated as L6 rather than S1. The level of greatest lordotic angulation will be designated as L5-6. The L6-S1 disk space is hypoplastic. No spondylolisthesis or high-grade scoliosis. Vertebral body heights are maintained. Conus medullar is terminates at L2. There are multiple T1 hypointense and T2 hyperintense masses in bilateral kidne ys, incompletely imaged. At least most of them are cysts. Some are incompletely imaged and incomple tely characterized. T12-L1: Normal. L1-2: Essentially normal. L2-3: Disk space maintained. Mild disk bulge. Moderately large Schmorl's node at superior end plat e of L3 with STIR hyperintense signal. T2 and STIR hyperintense signal scattered in the disk space. A small Schmorl's node inferior end plate of L2. There is bone marrow edema at the end plates surrounding both Schmorl's nodes. Mild disk bulge. Mil d central spinal canal stenosis. No high-grade neural foraminal stenosis. L3 and L3-4: No significant disk space narrowing. Prominent diffuse disk bulge. 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 There is a larger component whose superior portion is superior to the pedicle level of L3, actually contacting the right inferior edge of the L2-3 disk space. The bulk of this mass is at the L3 vertebral body le dipika. This mass has signal characteristics that are different from [place] disk, heterogeneously more h yperintense than the L3-4 and L2-3 disks on T2WI. This extradural mass significantly indents the rig ht anterior aspect of the thecal sac, displacing some of the right-sided cauda equina nerve roots. A t the L3-4 disk space itself, the combination of the disk bulge and the mild to moderate bilateral de generative facet changes and ligamentum flavum thickening, result in moderate central spinal canal st enosis. With the addition of posterior epidural fat pad, there is moderate to severe thecal sac sten osis. More superiorly at the pedicle level of L3, the right-sided extradural mass results in approxi mately 20-30% decrease in the cross-sectional area of the thecal sac. There is mild to moderate left neural foraminal stenosis. L4-5: Moderate disk space narrowing. Extensive multiple end plate irregularities and defects. Robert c type II changes. Diffuse disk bulge-osteophytic bar complex indents the ventral surface of thecal sac. Mild to moderate right and moderate left facet DJD and ligamentum flavum thickening. Mild cent ral spinal canal stenosis. Left lateral recess stenosis. Mild right and mild to moderate left neura l foraminal stenosis. Moderate disk space narrowing. L5-6: Moderate disk space narrowing. Diffuse disk bulge-osteophytic bar complex indents the thecal sac. Bilateral mild facet DJD. No high-grade central spinal canal stenosis. At least mild lateral recess stenosis bilaterally. Mild right and moderate left neural foraminal stenosis. L6-S1: No acquired central or neural foraminal stenosis. Hypoplastic facet joints. IMPRESSION: 1. Transitional level at lumbosacral junction, which is somewhat arbitrarily designated as L6 for th e purposes of this report. 2. At L3, there is a moderately large right anterolateral extradural mass effacing the right side of the thecal sac. There is a component that occupies the right L3-4 neural foramen, impinging on the exiting right L3 nerve root. This is consistent with a large disk extrusion. It could either be sup eriorly migrating from the L3-4 disk or inferiorly migrating from the L2-3 disk. 3. Lumbar spondylosis with multilevel moderate degenerative disk disease and mild-moderate facet ost eoarthrosis. NATHEN Acuna POS: MAGI
== END 2020-07-24 07:29 | disposition home or self-care (01) ==
LOC: TBSIIMAG 07:28
PROVIDERS: ATTEND Orthopaedic Surgery
DX: M47.26 Other spondylosis with radiculopathy, lumbar region (principal); M51.16 Intervertebral disc disorders with radiculopathy, lumbar region; M48.8X6 Other specified spondylopathies, lumbar region
CPT/HCPCS: 72148